=== PATIENT | male | born 1990 | race Two or more races ===

== ENCOUNTER 2017-09-30 20:48 | Emergency (ER) | payer OTHER ==
[~2017-09-30] VITALS: Ht 165.1 cm; Wt 57.1 kg
[2017-09-30] MEDS ORDERED: METHOCARBAMOL 750 MG TABLET ONE (22:08)
[2017-09-30] MEDS ORDERED: KETOROLAC 30 MG/1 ML ONE (22:08)
[2017-09-30] MEDS ORDERED: KETOROLAC 30 MG/1 ML IM ONE (22:30)
[2017-09-30] MEDS ORDERED: METHOCARBAMOL 750 MG TABLET PO ONE (22:30)
[2017-09-30 22:59] VITALS: BP 107/63
== END 2017-09-30 23:21 | disposition home or self-care (01) ==
LOC: EDBD 20:48 → ED 23:15
DX: S16.1XXA Strain of muscle, fascia and tendon at neck level, initial encounter (principal); S93.411A Sprain of calcaneofibular ligament of right ankle, initial encounter; V49.88XA Car occupant (driver) (passenger) injured in other specified transport accidents, initial encounter; Y93.89 Activity, other specified; Y92.410 Unspecified street and highway as the place of occurrence of the external cause; Y99.8 Other external cause status
CPT/HCPCS: 72050; 73610; 96372; 99284; J1885